=== PATIENT | male | born 1950 | race Caucasian/White ===

== ENCOUNTER 2020-12-07 14:11 | Emergency (ER) | payer OTHER ==
[~2020-12-07] VITALS: Ht 157.5 cm; Wt 64.4 kg
[2020-12-07 14:20] VITALS: BP_SYST 141
--- NOTE | 2020-12-07 15:46 | NUR ---
PT LEFT PER ADMISSION STAFF
== END 2020-12-07 15:46 | disposition left against medical advice (07) ==
LOC: SED 14:11
DX: M79.644 Pain in right finger(s) (principal); X58.XXXA Exposure to other specified factors, initial encounter; Y93.89 Activity, other specified; Y92.89 Other specified places as the place of occurrence of the external cause; Y99.0 Civilian activity done for income or pay; Z53.21 Procedure and treatment not carried out due to patient leaving prior to being seen by health care provider

== ENCOUNTER 2020-12-07 17:17 | Emergency (ER) | payer OTHER ==
--- NOTE | 2020-12-07 17:17 | NUR ---
PT UPON RETURNING TO ER, NOW DEMANDING TO BE SEEN RIGHT AWAY. ATTEMPTED TO EXPLAIN TO PT THAT WE NEED TO START TRIAGE OVER AGAIN, PT STATES "I AM NOT TALKING TO YOU". PT IN WAITING ROOM.
--- NOTE | 2020-12-07 17:31 | NUR ---
PT REFUSED TO BE TRIAGED BY ME. PT TO WAITING ROOM
--- NOTE | 2020-12-07 17:50 | NUR ---
PT CALLING NURSING STAFF RACIST. PT LEFT AGAIN WITHOUT BEING TRIAGED.
== END 2020-12-07 17:50 | disposition left against medical advice (07) ==
LOC: SED 17:17
DX: M79.646 Pain in unspecified finger(s) (principal); Z53.21 Procedure and treatment not carried out due to patient leaving prior to being seen by health care provider

== ENCOUNTER 2020-12-07 18:45 | Emergency (ER) | payer OTHER ==
--- NOTE | 2020-12-07 18:45 | NUR ---
CALLED FOR TRIAGE, UNABLE TO LOCATE PT.
--- NOTE | 2020-12-07 19:43 | NUR ---
Patient called x 3, no answer. Patient left without being seen. No further treatment provided. ER MD aware
== END 2020-12-07 19:43 | disposition left against medical advice (07) ==
LOC: SED 18:45
DX: M79.646 Pain in unspecified finger(s) (principal); Z53.21 Procedure and treatment not carried out due to patient leaving prior to being seen by health care provider